=== PATIENT | female | born 1960 | race Caucasian/White ===

== ENCOUNTER 2016-12-22 15:10 | Day surgery (SDC) | payer BC ==
[2016-12-22] MEDS ORDERED: NALOXONE HCL INJ/PF 0.4 MG/1 ML SDV ONE (16:00)
[2016-12-22] MEDS ORDERED: PROMETHAZINE HCL INJ 25 MG/1 ML VIAL ONE (16:00)
[2016-12-22] MEDS ORDERED: FENTANYL CITRATE INJ/PF 100 MCG/2 ML AMPUL ONE (16:01)
[2016-12-22] MEDS ORDERED: EPINEPHRINE INJ 1 MG/10 ML DISP.SYRIN ONE (16:02)
[2016-12-22] MEDS ORDERED: GLUCAGON,HUMAN RECOMB 1 MG INJ ONE (16:02)
[2016-12-22] MEDS ORDERED: FLUMAZENIL INJ 0.5 MG/5 ML VIAL IV ONE (16:02)
[2016-12-22] MEDS: MIDAZOLAM 2 MG/2 ML INJ ONE ×2 (16:45→16:49)
[2016-12-22] MEDS ORDERED: ONDANSETRON HCL INJ/PF 4 MG/2 ML SDV ONE (16:48)
--- NOTE | 2016-12-22 17:09 | Operative Report ---
Operative Report DATE OF SURGERY: 12/22/16 Operative Report: Pre-op diagnosis: History of iron deficiency anemia with gastric antral vascular ectasia Post-op diagnosis: Gastric antral vascular ectasia Surgery: Esophagogastroduodenoscopy with biopsy and argon plasma coagulation Medications: Versed 4mg Fentanyl 100mcg IV push Tissue removed: Gastric body biopsy for pathology Procedure: After informed consent obtained from patient, the throat was sprayed with Hurricane and conscious sedation was achieved. The upper endoscope was inserted into the esophagus under direct vision and advanced into the stomach. The duodenum was entered and examined to the second part. Endoscope was then slowly pulled out of the patient as the mucosa was examined into details. Patient tolerated procedure well. Findings Esophagus: Normal Antrum: There were linear areas of erythema in a watermelon pattern consistent with GAVE. Left half of the antrum was then treated with argon plasma coagulation. Body: There was some erythema noted in the body and part of the fundus. Multiple hyperplastic polyps were noted in the body and fundus Fundus: Multiple fundal-looking polyps Duodenum first part: Normal Duodenum second part: Normal Plan: Await pathology. Increase omeprazole to twice a day and repeat EGD with coagulation in six weeks. She will hold diclofenac for at least one week OPERATION: .
--- NOTE | 2016-12-22 17:13 | PDOC DISCHARGE SUMMARY ---
Discharge Summary (SDC) - Discharge Final Diagnosis: Gastric ectasia Date of Surgery: 12/22/16 Condition: Stable Treatment or Instructions: Increase omeprazole to 20 mg twice a day. Hold diclofenac for one week. Discharge Diet: As Tolerated Discharge Activity: Activity As Tolerated Report the Following to Your Physician Immediately: Nausea, Vomiting, Swelling
[2016-12-22 18:01] VITALS: BP 121/66
== END 2016-12-22 17:58 | disposition home or self-care (01) ==
LOC: END 15:10
PROVIDERS: ATTEND Internal Medicine Gastroenterology
PROC: 0D568ZZ Destruction of Stomach, Via Natural or Artificial Opening Endoscopic (ICD-10-PCS; 2016-12-22)
PROC: 0DB68ZX Excision of Stomach, Via Natural or Artificial Opening Endoscopic, Diagnostic (ICD-10-PCS; principal; 2016-12-22 15:45)
DX: K31.819 Angiodysplasia of stomach and duodenum without bleeding (principal); K31.7 Polyp of stomach and duodenum; I10 Essential (primary) hypertension; K21.9 Gastro-esophageal reflux disease without esophagitis; Z88.5 Allergy status to narcotic agent; Z88.8 Allergy status to other drugs, medicaments and biological substances
CPT/HCPCS: 43270; 88342 ×2; 88305 ×2; J2250; J0171; J3010; J2405; J1610; J2310; J2550; J3490

== ENCOUNTER 2017-02-16 15:15 | Day surgery (SDC) | payer BC ==
[2017-02-16] MEDS ORDERED: NALOXONE HCL INJ/PF 0.4 MG/1 ML SDV ONE (16:04)
[2017-02-16] MEDS ORDERED: FENTANYL CITRATE INJ/PF 100 MCG/2 ML AMPUL ONE (16:04)
[2017-02-16] MEDS ORDERED: GLUCAGON,HUMAN RECOMB 1 MG INJ ONE (16:05)
[2017-02-16] MEDS ORDERED: EPINEPHRINE INJ 1 MG/10 ML DISP.SYRIN ONE (16:05)
[2017-02-16] MEDS ORDERED: FLUMAZENIL INJ 0.5 MG/5 ML VIAL IV ONE (16:05)
[2017-02-16] MEDS: MIDAZOLAM 2 MG/2 ML INJ ONE ×2 (17:02→17:07)
--- NOTE | 2017-02-16 17:29 | Operative Report ---
Operative Report DATE OF SURGERY: 02/16/17 Operative Report: Pre-op diagnosis: History of gastric vascular ectasia and iron deficiency anemia Post-op diagnosis: Gastric vascular ectasia and gastric polyp Surgery: Esophagogastroduodenoscopy with argon plasma coagulation and polypectomy Medications: Versed 4mg Fentanyl 100mcg IV push Tissue removed: Gastric polyp for pathology Procedure: After informed consent obtained from patient, the throat was sprayed with Hurricane and conscious sedation was achieved. The upper endoscope was inserted into the esophagus under direct vision and advanced into the stomach. The duodenum was entered and examined to the second part. Endoscope was then slowly pulled out of the patient as the mucosa was examined into details. Patient tolerated procedure well. Findings Esophagus: Normal Z-line at:40cm Antrum: Linear erythema extending to was the pyloric channel. Most of the ectasia was in the right side of the stomach which were then cauterized using APC. Body: Multiple polyps were noted in the gastric body and the fundus. One of the polyp was more erythematous and about 1 cm. It was removed with hot polypectomy Fundus: Normal Duodenum first part: Normal Duodenum second part: Normal Plan: Await pathology. Repeat EGD with APC in 6-8 weeks OPERATION: .
--- NOTE | 2017-02-16 17:30 | PDOC DISCHARGE SUMMARY ---
Discharge Summary (SDC) - Discharge Final Diagnosis: Gastric vascular ectasia Date of Surgery: 02/16/17 Condition: Stable Treatment or Instructions: Continue omeprazole twice a day Discharge Diet: As Tolerated Discharge Activity: Activity As Tolerated Report the Following to Your Physician Immediately: Nausea, Vomiting, Warmth, Increased Soreness
[2017-02-16 18:16] VITALS: BP 116/55
[2017-02-16 18:18] LABS: HEMATOCRIT 37.4 % (36.0-47.0); HEMOGLOBIN 12.1 g/dL (12.0-15.5); HGB HCT DIFFERENCE -1.1; MEAN CORPUSCULAR HEMOGLOBIN 28.6 pg (27.0-33.4); MEAN CORPUSCULAR HGB CONC 32.4 g/dL (32.0-36.0); MEAN CORPUSCULAR VOLUME 88 fl (80-97); RED BLOOD COUNT 4.24 10^6/uL (3.72-5.28); RED CELL DISTRIBUTION WIDTH 16.1 % (11.5-14.0); WHITE BLOOD COUNT 6.1 10^3/uL (4.0-10.5)
== END 2017-02-16 18:20 | disposition home or self-care (01) ==
LOC: END 15:15
PROVIDERS: ATTEND Internal Medicine Gastroenterology
PROC: 0DB68ZX Excision of Stomach, Via Natural or Artificial Opening Endoscopic, Diagnostic (ICD-10-PCS; principal; 2017-02-16 15:30)
PROC: 0W3P8ZZ Control Bleeding in Gastrointestinal Tract, Via Natural or Artificial Opening Endoscopic (ICD-10-PCS; 2017-02-16 15:30)
DX: K31.819 Angiodysplasia of stomach and duodenum without bleeding (principal); K31.7 Polyp of stomach and duodenum; K21.9 Gastro-esophageal reflux disease without esophagitis; Z87.11 Personal history of peptic ulcer disease; I10 Essential (primary) hypertension; D50.9 Iron deficiency anemia, unspecified; Z88.5 Allergy status to narcotic agent
CPT/HCPCS: 43255; 43251; 36415; 82728; 85027; 88342 ×2; 88305 ×2; J2250; J3010; J0171; J1610; J2310; J3490

== ENCOUNTER 2017-04-20 15:04 | Day surgery (SDC) | payer BC ==
[2017-04-20] MEDS ORDERED: NALOXONE HCL INJ/PF 0.4 MG/1 ML SDV ONE (15:23)
[2017-04-20] MEDS ORDERED: FLUMAZENIL INJ 0.5 MG/5 ML VIAL IV ONE (15:24)
[2017-04-20] MEDS ORDERED: EPINEPHRINE INJ 1 MG/10 ML DISP.SYRIN ONE (15:24)
[2017-04-20] MEDS ORDERED: FENTANYL CITRATE INJ/PF 100 MCG/2 ML AMPUL ONE (15:24)
[2017-04-20] MEDS ORDERED: GLUCAGON,HUMAN RECOMB 1 MG INJ ONE (15:24)
[2017-04-20] MEDS ORDERED: ONDANSETRON HCL INJ/PF 4 MG/2 ML SDV ONE (15:24)
[2017-04-20] MEDS: MIDAZOLAM 2 MG/2 ML INJ ONE ×2 (16:23→16:27)
--- NOTE | 2017-04-20 16:47 | Operative Report ---
Operative Report DATE OF SURGERY: 04/20/17 Operative Report: Pre-op diagnosis: History of gastric vascular ectasia and iron deficiency anemia Post-op diagnosis: Gastric antral vascular ectasia Surgery: Esophagogastroduodenoscopy with argon plasma coagulation Medications: Versed 4mg Fentanyl 100mcg IV push Tissue removed: None Procedure: After informed consent obtained from patient, the throat was sprayed with Hurricane and conscious sedation was achieved. The upper endoscope was inserted into the esophagus under direct vision and advanced into the stomach. The duodenum was entered and examined to the second part. Endoscope was then slowly pulled out of the patient as the mucosa was examined into details. Patient tolerated procedure well. Findings Esophagus: Normal Z-line at: 40 cm Antrum: Multiple linear areas of erythema with some edema. This was cauterized using the argon plasma account manager education Body: Multiple polyps Fundus: Multiple polyps Duodenum first part: Normal Duodenum second part: Normal Plan: Continue omeprazole twice a day especially with the use of diclofenac daily. Repeat CBC today OPERATION: .
--- NOTE | 2017-04-20 17:31 | PDOC DISCHARGE SUMMARY ---
Discharge Summary (SDC) - Discharge Final Diagnosis: Gastric antral vascular ectasia Date of Surgery: 04/20/17 Condition: Stable Forms: Discharge POC-Adult, Sedation D/C Instructions Treatment or Instructions: Continue omeprazole Referrals: NOBLE SEBASTIAN MD [ACTIVE STAFF] - (CALL OFFICE FOR FOLLOW UP VISIT) Discharge Diet: As Tolerated Discharge Activity: Activity As Tolerated, No Driving, Slowly Increase Activity Home Care Assistance: None Needed Report the Following to Your Physician Immediately: Shortness of Breath, Fever over 101 Degrees, Unusual Bleeding
[2017-04-20 17:33] LABS: HEMATOCRIT 39.2 % (36.0-47.0); HEMOGLOBIN 12.8 g/dL (12.0-15.5); HGB HCT DIFFERENCE -0.8; MEAN CORPUSCULAR HEMOGLOBIN 28.9 pg (27.0-33.4); MEAN CORPUSCULAR HGB CONC 32.5 g/dL (32.0-36.0); MEAN CORPUSCULAR VOLUME 89 fl (80-97); RED BLOOD COUNT 4.42 10^6/uL (3.72-5.28); RED CELL DISTRIBUTION WIDTH 14.4 % (11.5-14.0); WHITE BLOOD COUNT 5.3 10^3/uL (4.0-10.5)
[2017-04-20 17:41] VITALS: BP 130/75
== END 2017-04-20 17:56 | disposition home or self-care (01) ==
LOC: END 15:04
PROVIDERS: ATTEND Internal Medicine Gastroenterology
PROC: 0W3P8ZZ Control Bleeding in Gastrointestinal Tract, Via Natural or Artificial Opening Endoscopic (ICD-10-PCS; principal; 2017-04-20 15:30)
DX: K31.819 Angiodysplasia of stomach and duodenum without bleeding (principal); K31.7 Polyp of stomach and duodenum; K21.9 Gastro-esophageal reflux disease without esophagitis; I10 Essential (primary) hypertension; M19.90 Unspecified osteoarthritis, unspecified site; Z88.5 Allergy status to narcotic agent
CPT/HCPCS: 43255; 36415; 85027; J2250; J3010; J0171; J1610; J2310; J2405; J3490

== ENCOUNTER → 2017-08-09 | Outpatient (CLI) | payer BC ==
--- NOTE | 2017-08-09 12:17 | WOMENS IMAGING REPORT ---
EXAM DESCRIPTION: 3D SCREENING MAMMO BILAT COMPLETED DATE/TIME: 08/09/2017 10:41 am REASON FOR STUDY: SCREENING MAMMO Z12.31 ENCNTR SCREEN MAMMOGRAM FOR MALIGNANT NEOPLASM OF KYLE COMPARISON: 2015 TECHNIQUE: Standard craniocaudal and mediolateral oblique views of each breast recorded using digita l acquisition and breast tomosynthesis. LIMITATIONS: None. FINDINGS: No masses, calcifications or architectural distortion. No areas of suspicion. Read with the assistance of CAD. .[facility] - R2 Cenova Version 1.3 .[facility] - R2 Cenova Version 1.3 .[facility] - R2 Cenova Version 2.4 .[facility] - R2 Cenova Version 2.4 .[facility] - R2 [employer] Cementer Version 9.2 IMPRESSION: NORMAL MAMMOGRAM. BIRADS 1. BREAST DENSITY: c. The breasts are heterogeneously dense, which may obscure small masses. BIRAD: 1 NEGATIVE RECOMMENDATION: ROUTINE SCREENING COMMENT: The patient has been notified of the results by letter per SA requirements. Additional no tification policies are in place for contacting patient with suspicious or incomplete findings. Quality ID #[id number]: The [employer] recommends an annual screening mammogram for women aged 40 years or over. This facility utilizes a reminder system to ensure that all patients receive reminder letters, and/or direct phone calls for appointments. This includes reminders for routine scr eening mammograms, diagnostic mammograms, or other Breast Imaging Interventions when appropriate. Th is patient will be placed in the appropriate reminder system. The [employer] (A[employer]) has developed recommendations for screening MRI of the breast s in certain patient populations, to be used in conjunction with mammography. Breast MRI surveillanc e may be appropriate for women with more than 20% lifetime risk of developing breast cancer as deter mined by genetic testing, significant family history of the disease, or history of mantle radiation f or Hodgkins Disease. ACR Practice Guidelines 2008. DBT Technology DBT is a type of tomographic mammography. With conventional mammography, overlapping breast tissue ma y make lesions difficult to detect, even with good compression. DBT uses an x-ray tube that rotates a round the breast, taking images at different angles. These images are then combined to create thin sl ices of the breast that the radiologist can view as a 3D reconstruction. The [employer] unit can perform full-field digital mammograms (2D imaging); or DBT (3D imaging); or both, in a combination mode that quickly performs both the mammogram and the tomosynthesis scan while the breast is still compressed. PQRS 6045F: Fluoroscopic imaging is not utilized for breast tomosynthesis. TECHNICAL DOCUMENTATION: FINDING NUMBER: (1) ASSESSMENT: (1) JOB ID: [id number] [employer]- All Rights Reserved
== END ==
LOC: WI 10:26
PROVIDERS: ATTEND Family Medicine
DX: Z12.31 Encounter for screening mammogram for malignant neoplasm of breast (principal)
CPT/HCPCS: 77063; G0202; 77067